=== PATIENT | male | born 1970 | race Caucasian/White ===

== ENCOUNTER 2025-01-09 17:28 | Emergency (ER) | payer OTHER, SELFPAY ==
[2025-01-09 17:34] VITALS: BP 152/85
--- NOTE | 2025-01-09 20:39 | ED.GENMED ---
History of Present Illness
General
Chief Complaint: Swelling
Source: patient and spouse
Exam Limitations: none
Time Seen by Provider: 01/09/25 19:42
Nursing documentation reviewed up to this point in time: agreed with
History of Present Illness
History of Present Illness:
54-year-old male without significant past medical history presenting to the emergency department with concerns of redness and swelling to the right dorsal hand at the fourth digit. Denies any specific injury preceding this. Has gradually been
worsening over the past 2 days.
Review of Systems
Review of Systems
Allergies reviewed?: Yes
All Other Systems: ROS reviewed and negative except as documented in HPI and ROS
Phy Exam
Physical Exam
Physical Exam:
GENERAL: Alert , in no apparent distress
EYE: pupils equal and reactive
NECK: Supple, no significant adenopathy.
ENT: o/p clr, mmm.
CARDIAC: Regular rate and rhythm .
LUNGS: Clear breath sounds bilaterally, no acute respiratory distress, no wheezes/rales/rhonchi
ABDOMEN: Soft, without focal tenderness, no r/g, no cvat
NEUROLOGICAL: Alert and oriented, no focal neuro deficits
SKIN: Redness and swelling overlying the right fourth MCP with streaking over the dorsum of the hand does not cross the wrist no flexor tendon tenderness able to fully extend and flex the fingers. Warm and dry, skin intact.
MUSCULOSKELETAL: No edema, well perfused.
PSYCH: Normal and appropriate interaction.
Scores
Heart Failure Risk
Heart Failure Risk Score: Not Applicable
Course
Orders/Labs/Results
Orders:
Orders
01/09/25 20:39
Cephalexin Monohydrate [Keflex] 500 mg PO NOW STA
Vital Signs
Initial and Last Documented VS:
Initial Vital Signs
Temp Pulse Resp BP Pulse Ox
97.8 F 80 16 152/85 98
01/09/25 17:34 01/09/25 17:34 01/09/25 17:34 01/09/25 17:34 01/09/25 17:34
Last Documented Vital Signs
Temp Pulse Resp BP Pulse Ox
97.8 F 80 16 152/85 98
01/09/25 17:34 01/09/25 17:34 01/09/25 17:34 01/09/25 17:34 01/09/25 17:34
MDM/Problems Addressed
MDM/Problems Addressed:
54-year-old male presenting to the emergency department today with concerns of right hand swelling over the past few days. Patient found to have likely cellulitis. Plan to treat with antibiotics otherwise stable for outpatient management. Return
precautions given.
*Critical Care Note
Total Time (30-74mins, 75-104mins- exclusive of procedures): Not Applicable
ED Attending Note
-
Portions of this chart may have been created with voice recognition software.� Occasional wrong word or��sound alike� substitutions may have occurred due to the inherent limitations of voice recognition software.
Discharge Plan
Departure
Patient Disposition: Home (Routine Discharge)
Date of Disposition: 01/09/25
Time of Disposition: 20:40
Patient with high blood pressure during this ER visit?: No
Condition: Good
Covid-19: Not Applicable
Discharge Problem:
Cellulitis of hand, right
Instructions: Cellulitis (skin infection) in adults - Discharge instructions
Prescriptions:
New
cephalexin 500 mg capsule
500 mg PO QID 7 Days Qty: 28 0RF
Referrals:
Lasha Dai MD [Family Provider] -
Activity Restrictions/Additional Instructions:
You came to the emergency department today with concerns of swelling to your right hand. This appears to be consistent with a skin infection. Please take the prescribed Keflex 4 times daily over the next 7 days and follow-up closely with your
primary care doctor within 1 week. Return for any worsening, new or concerning symptoms.
Interventions
Interventions:
*Risk Screen - Suicide Last Done: 01/09/25 17:35
*Neglect/Abuse Screening Last Done: 01/09/25 17:35
Discharge Date and Time
Print Language: TURKISH
[2025-01-09] MEDS: KEFLEX 500 MG PO (20:42)
== END 2025-01-09 21:06 | disposition home or self-care (01) ==
LOC: EMR 17:28
PROVIDERS: EMERGENCY PHYSICIAN Student in an Organized Health Care Education/Training Program; FAMILY PHYSICIAN Family Medicine
DX: L03.113 Cellulitis of right upper limb (principal)
CPT/HCPCS: 99283